=== PATIENT | female | born 1995 | race Caucasian/White ===

== ENCOUNTER 2023-07-03 08:00 | Outpatient (CLI) | payer MEDICAID ==
[2023-07-03 16:43] LABS: BASOPHILS % (AUTO) 0.4 %; EOSINOPHILS # (AUTO) 0.3 10^3/uL (0.0-0.7); EOSINOPHILS % (AUTO) 3.2 %; HGB - HEMOGLOBIN 12.9 g/dL (12.0-16.0); LYMPHOCYTES # (AUTO) 2.1 10^3/uL (1.5-3.5); LYMPHOCYTES % (AUTO) 24.5 %; MEAN CORPUSCULAR HEMOGLOBIN 29.9 pg (27.0-31.0); MEAN CORPUSCULAR HGB CONC 33.1 g/dL (32.0-36.0); MEAN CORPUSCULAR VOLUME 90.5 fL (81.0-99.0); MEAN PLATELET VOLUME 13.2 fL (7.9-10.8); MONOCYTES # (AUTO) 0.5 10^3/uL (0.0-1.0); MONOCYTES % (AUTO) 5.9 %; NEUTROPHILS # (AUTO) 5.5 10^3/uL (1.5-6.6); NEUTROPHILS % (AUTO) 65.8 %; PLT - PLATELET COUNT 216 10^3/uL (130-450); RED BLOOD COUNT 4.31 10^6/uL (4.20-5.40); WHITE BLOOD COUNT 8.4 x10^3/uL (4.8-10.8)
[2023-07-03 17:13] LABS: THYROID STIMULATING HORMONE 0.99 uIU/mL (0.34-5.60)
[2023-07-03 17:19] LABS: FERRITIN 47.2 ng/mL (11.0-306.8)
[2023-07-03 19:01] LABS: ESTIMATED AVERAGE GLUCOSE 94 mg/dL (70-100); HEMOGLOBIN A1c% 4.9 % (4.27-6.07)
== END 2023-07-03 23:59 | disposition home or self-care (01) ==
LOC: LAB.R 08:00
PROVIDERS: ATTEND Nurse Practitioner Obstetrics & Gynecology
DX: Z34.80 Encounter for supervision of other normal pregnancy, unspecified trimester (principal)
CPT/HCPCS: 82728; 83036; 84443; 84702; 85025; 86762; 86850; 86900; 86901; 87086

== ENCOUNTER 2023-09-28 08:18 | Outpatient (CLI) | payer MEDICAID ==
[2023-09-28 08:40] VITALS: BP 116/69
[2023-09-28 09:11] LABS: BASOPHILS % (AUTO) 0.2 %; EOSINOPHILS % (AUTO) 0.1 %; HCT - HEMATOCRIT 36.4 % (37.0-47.0); HGB - HEMOGLOBIN 12.4 g/dL (12.0-16.0); LYMPHOCYTES # (AUTO) 0.6 10^3/uL (1.5-3.5); LYMPHOCYTES % (AUTO) 6.5 %; MEAN CORPUSCULAR HEMOGLOBIN 30.8 pg (27.0-31.0); MEAN CORPUSCULAR HGB CONC 34.1 g/dL (32.0-36.0); MEAN CORPUSCULAR VOLUME 90.5 fL (81.0-99.0); MEAN PLATELET VOLUME 11.9 fL (7.9-10.8); MONOCYTES # (AUTO) 0.5 10^3/uL (0.0-1.0); NEUTROPHILS # (AUTO) 7.3 10^3/uL (1.5-6.6); NEUTROPHILS % (AUTO) 86.8 %; PLT - PLATELET COUNT 184 10^3/uL (130-450); RED BLOOD COUNT 4.02 10^6/uL (4.20-5.40); RED CELL DISTRIBUTION WIDTH 13.5 % (12.0-15.0); WHITE BLOOD COUNT 8.4 x10^3/uL (4.8-10.8)
[2023-09-28 09:16] LABS: BILIRUBIN,URINE NEGATIVE (NEGATIVE); CLARITY,URINE SL. CLOUDY (CLEAR); GLUCOSE, URINE (UA) NEGATIVE (NEGATIVE); KETONES,URINE (UA) >=80 mg/dL (NEGATIVE); LEUKOCYTE ESTERASE, URINE NEGATIVE (NEGATIVE); NITRITE,URINE NEGATIVE (NEGATIVE); OCCULT BLOOD,URINE NEGATIVE (NEGATIVE); PROTEIN,URINE TRACE mg/dL (NEGATIVE); UROBILINOGEN,URINE 1 (NORMAL) E.U./dL (NORMAL)
[2023-09-28] MEDS: LACTATED RINGERS 1,000 ML IV ONE (09:20)
--- NOTE | 2023-09-28 09:28 | PROVIDER PROGRESS NOTE ---
- HPI Chief Complaint: GI symptoms Current : Vital Signs Temperature 97.7 F 09/28/23 08:30 Heart Rate 100 09/28/23 08:30 Respiratory Rate 17 09/28/23 08:30 Blood Pressure 116/69 09/28/23 08:30 Temperature 97.7 F 09/28/23 08:30 Heart Rate 100 09/28/23 08:30 Respiratory Rate 17 09/28/23 08:30 Blood Pressure 116/69 09/28/23 08:30 O2 Saturation If not protocol: Oxygen Flow, liters/minute - Plan Plan: Patient is a 28-year-old G2, P1 21 weeks gestation presenting with GI illness. Had nausea, vomiting, diarrhea since last night. Approximately 1 episode of diarrhea per hour. Vomiting comes quickly with limited morning nausea. Has not take anything for her symptoms. She does decline monitoring today. Multiple family members with similar GI illness over the last several days. Usually lasting 12 minutes. Physical Exam Constitutional: alert, no acute distress, well hydrated, well developed, well nourished, appropriate dress. Respiratory: no respiratory distress. Psych: affect and mood appropriate, normal interaction, good eye contact. Plan Gastroenteritis -Declined Zofran. Discussed antiemetics and antidiarrheals. -Concentrated urine and feeling unwell. Mild signs of dehydration, but not serious. 1 liter LR given and patient improved and felt well to return home. hypokalemia - Mildly low, but will likely resolve when eating again. No need for urgent replacement.
[2023-09-28 09:30] LABS: ALBUMIN/GLOBULIN RATIO 1.3 (1.0-2.2); BILIRUBIN,TOTAL 0.7 mg/dL (0.2-1.0); CALCIUM 8.8 mg/dL (8.5-10.3); CREATININE 0.4 mg/dL (0.6-1.3); POTASSIUM 3.3 mmol/L (3.5-4.5)
[2023-09-28 09:32] LABS: BACTERIA,URINE Moderate /HPF (None Seen); MUCUS,URINE Marked Strands; RBC,URINE None Seen /HPF (0-5); SQUAMOUS EPITHELIAL CELL,UR MANY Squamous (<= Few)
== END 2023-09-28 10:30 | disposition home or self-care (01) ==
LOC: WFO 08:18 → FBP 08:20 → WFO 10:30
PROVIDERS: ATTEND Obstetrics & Gynecology
DX: O99.612 Diseases of the digestive system complicating pregnancy, second trimester (principal); K52.9 Noninfective gastroenteritis and colitis, unspecified; O99.282 Endocrine, nutritional and metabolic diseases complicating pregnancy, second trimester; E86.0 Dehydration; Z3A.21 21 weeks gestation of pregnancy
CPT/HCPCS: 36415; 80053; 81001; 85025; 99214; J7120; 87086